=== PATIENT | female | born 1975 | race Caucasian/White ===

== ENCOUNTER 2016-09-10 21:14 | Emergency (ER) | payer SELFPAY ==
--- NOTE | 2016-09-10 22:49 | DIAGNOSTIC IMAGING REPORT ---
PROCEDURE: XR WRIST MIN 3 VIEWS - RIGHT INDICATION: TRAUMA/INJURY TECHNIQUE: Four views of the right wrist. COMPARISON: None. FINDINGS: Normal mineralization. Transverse, comminuted, impacted, slightly dorsally angulated fracture of the distal radius involving metaphysis. There is extension to the medial articular surface. Mildly displaced ulnar styloid fracture. Distal radial ulnar joint and radiocarpal alignment remain normal. Moderate soft tissue swelling. No radiodense foreign bodies. IMPRESSION: 1. Impacted, comminuted, partially intra-articular distal radius fracture. 2. Distal ulnar styloid fracture.
--- NOTE | 2016-09-10 23:29 | ED ORDER SUMMARY ---
..... Patient: MILADIS MARTIN OrderSheet [facility] VisitID: [id number] [place] [address] 41y, F Registration Date/Time: 09/10/2016 ORDER SHEET Weight: 70.3 kg (stated) Allergies: No Known Drug Allergy GENERAL ORDERS: Wrist 3 or 4V Right Urgent (21:45 09/10/2016 Chely Nascimento) (Ack 21:47 AMcQuoid ER Tech1) (22:25 Elena) Ice (21:55 09/10/2016 Chely Nascimento) (21:56 Matthias R.N.) Splint (UE) (Right) (Sugar Tong) (22:42 09/10/2016 Chely Nascimento) (23:35 HSoule) Sling - arm (22:43 09/10/2016 Chely Nascimento) (23:35 HSoule) MEDICATION ORDERS: IV FLUIDS: Morphine IV 4 mg (HIGH ALERT MEDICATION, NOW) (21:46 09/10/2016 Chely Nascimento) (21:56 Matthias R.N.) Zofran IV 4 mg (NOW) (21:58 09/10/2016 Chely Nascimento) (Ack 22:20 HSoule) (22:25 Merritt R.N.) Morphine IV 8 mg (HIGH ALERT MEDICATION, NOW) (22:41 09/10/2016 Chely Nascimento) (22:54 Matthias R.N.) Morphine IV 8 mg (HIGH ALERT MEDICATION, NOW) (23:46 09/10/2016 Chely Nascimento) (0:00 Merritt R.NTao) ORDER SHEET NOTES: [Electronically signed by Araceli Weiss R.N. (00:05 09/11/2016)] [Electronically signed by Raymond Weaver Dr. (06:58 09/11/2016)] [Electronically locked/signed by Araceli Weiss R.N. (00:05 09/11/2016)]
--- NOTE | 2016-09-10 23:29 | ED NURSING NOTES ---
Clinical Report - Nurses [facility] [place] [address] 09/10/2016 21:15 Patient: MILADIS MARTIN TRIAGE Triage time 21:37. Acuity: LEVEL 3. Chief Complaint: INJURY TO RIGHT HAND and RIGHT ELBOW and INJURY TO RIGHT SHOULDER. --21:37 Sheriff Wood R.N. 21:32 09/10/16. BP: 116/78. HR: 95. RR: 18. O2 saturation: 96%. Temp: 97.6 F. Pain level now: 11/21. --21:37 Sheriff Wood R.N. Weight: 70.3 kg stated. Height/Length: 65 inches Per Patient. BMI: 25.8. --21:36 Sheriff Wood R.N. Medications Hydrocodone-Acetaminophen Oral 5 mg, as needed. Wellbutrin Oral 300mg , daily. --21:34 Sheriff Wood R.N. Allergies No Known Drug Allergy. --21:34 Sheriff Wood R.N. History Arrived by private vehicle. Historian: patient. Accompanied by family. This occurred (1 hour ago). Occurred at an athletic field. ( Tried to stop a tackle while playing football, right arm twisted backward.). 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 PAST MEDICAL HX: Tetanus status: up-to-date. SURGERY HX: ( Right arm). SOCIAL HX: Never smoker. Alcohol use; consumes beer occasionally, liquor occasionally and wine occasionally. History of drug use: marijuana. FALL RISK ASSESSMENT: Fall risk assessment completed. No fall risk identified. NUTRITIONAL RISK ASSESSMENT: The nutritional risk assessment revealed no deficiencies. FUNCTIONAL ASSESSMENT: Functional assessment: no impairments noted. LEARNING NEEDS ASSESSMENT: The learning needs assessment revealed no barriers. SKIN INTEGRITY ASSESSMENT: Skin integrity risk assessment completed. No skin integrity risk identified. --21:37 Sheriff Wood R.N. PROBLEMS: Contusion. Jaw Pain. Depression. Back Pain. --21:34 Sambou, Pipe Line Inspector, R.N. Interventions ID band on patient. --21:37 Sheriff Wood R.N. PHYSICAL ASSESSMENT Ambulatory to room. GENERAL / NEURO / PSYCH: Oriented X 4. Appears in pain. EXTREMITIES: Capillary refill is less than 2 seconds in the extremities. Right shoulder: (pain). Right elbow: (pain). Right wrist: (pain). SKIN: Skin intact. Skin is warm and dry. --21:38 Sheriff Wood R.N. NURSING PROGRESS NOTES Two patient identifiers checked. Call light placed in reach. Side rails up x 2. Bed placed in lowest position. Brakes of bed on. --21:39 Sheriff Wood R.N. 21:45 09/10/2016 Site #1 started via IV in the right antecubital space with an 20g angiocath, with aseptic technique and good blood return; one attempt. Blood drawn: rainbow set. Labeled in the presence of the patient and sent to the lab. Saline lock flushed with 10 mL saline. --21:55 Sheriff Wood R.N. 21:56 09/10/2016 Morphine IVP 4 mg given over 1 minute(s) via site #1. Allergies verified, confirmed 5 rights and sedative warning given to the patient. IV patency established. IV site checked: no pain, redness, or swelling. IV flushed thoroughly pre- and post-medication administration. IVP given by RN. --21:56 Sheriff Wood R.N. 22:25 09/10/2016 Zofran (Ondansetron HCl) IVP 4 mg given over 2 minute(s) via site #1. Allergies verified and confirmed 5 rights. IV patency established. IV site checked: no pain, redness, or swelling. IV flushed thoroughly pre- and post-medication administration. IVP given by RN. --22:25 Araceli Weiss R.N. 22:54 09/10/2016 Morphine IVP 8 mg given over 2 minute(s) via site #1. Allergies verified, confirmed 5 rights and sedative warning given to the patient. IV patency established. IV site checked: no pain, redness, or swelling. IV flushed thoroughly pre- and post-medication administration. IVP given by RN. --22:54 Sheriff Wood R.N. Sugar tong fiberglass upper extremity splint applied to right wrist and hand by tech. Distal pulses intact, sensation intact and motor within normal limits. Sling applied to right arm by medtronics technician; distal pulses intact, sensation intact and motor function within normal limits. --23:50 Danielle Ibrahim 23:55 09/10/2016 Morphine IVP 8 mg given over 2 minute(s) via site #1. Allergies verified, confirmed 5 rights and sedative warning given to the patient and patient's family. IV patency established. IV site checked: no pain, redness, or swelling. IV flushed thoroughly pre- and post-medication administration. IVP given by RN. --00:01 Araceli Weiss R.N. <<STRICKEN ENTRY-- 23:55 09/11/2016 Morphine IVP 8 mg given over 2 minute(s) via site #1. Allergies verified, confirmed 5 rights and sedative warning given to the patient and patient's family. IV patency established. IV site checked: no pain, redness, or swelling. IV flushed thoroughly pre- and post-medication administration. IVP given by RN. --00:00 Araceli Weiss R.N. --END STRIKE>> Correction. --00:01 Araceli Weiss R.N. DISPOSITION / DISCHARGE 00:01 09/11/2016 Site #1 removed upon discharge. Catheter intact. Manual pressure and bandage applied. --00:03 Araceli Weiss R.N. Departure time: 1. Condition at departure: improved and stable. No learning barriers present. Discharge instructions provided and reviewed with the patient and family. Reviewed medication(s) side effects, precautions, dosing and course information. Prescription(s) given to the patient. Reviewed referral to an orthopedic surgeon for followup. Activity restrictions (minimal use of injured extremity) reviewed. Work note given. Patient verbalized understanding. Written instructions provided in Spanish. The patient was discharged home and accompanied by spouse and family. She left the Emergency Department ambulatory and via private vehicle. Spouse driving. --00:04 Araceli Weiss R.N. 00:01 09/11/16. BP: 120/63. HR: 68 (regular and normal rate). RR: 18 (regular and unlabored). O2 saturation: 100% on room air. Temp: deferred. Pain level now: 09/20. --00:04 Araceli Weiss R.N. Locked/Released at 09/11/2016 0:05 by Araceli Weiss R.N.
--- NOTE | 2016-09-10 23:29 | ED ORDER SUMMARY ---
..... Patient: MILADIS MARTIN OrderSheet [facility] VisitID: [id number] [place] [address] 41y, F Registration Date/Time: 09/10/2016 ORDER SHEET Weight: 70.3 kg (stated) Allergies: No Known Drug Allergy GENERAL ORDERS: Wrist 3 or 4V Right Urgent (21:45 09/10/2016 Chely Nascimento) (Ack 21:47 AMcQuoid ER Tech1) (22:25 Elena) Ice (21:55 09/10/2016 Chely Nascimento) (21:56 Matthias R.N.) Splint (UE) (Right) (Sugar Tong) (22:42 09/10/2016 Chely Nascimento) (23:35 HSoule) Sling - arm (22:43 09/10/2016 Chely Nascimento) (23:35 HSoule) MEDICATION ORDERS: IV FLUIDS: Morphine IV 4 mg (HIGH ALERT MEDICATION, NOW) (21:46 09/10/2016 Chely Nascimento) (21:56 Matthias R.N.) Zofran IV 4 mg (NOW) (21:58 09/10/2016 Chely Nascimento) (Ack 22:20 HSoule) (22:25 Merritt R.N.) Morphine IV 8 mg (HIGH ALERT MEDICATION, NOW) (22:41 09/10/2016 Chely Nascimento) (22:54 Matthias R.N.) Morphine IV 8 mg (HIGH ALERT MEDICATION, NOW) (23:46 09/10/2016 Chely Nascimento) (0:00 Merritt R.NTao) ORDER SHEET NOTES: [Electronically signed by Araceli Weiss R.N. (00:05 09/11/2016)] [Electronically signed by Raymond Weaver Dr. (06:58 09/11/2016)] [Electronically locked/signed by Araceli Weiss R.N. (00:05 09/11/2016)]
--- NOTE | 2016-09-10 23:29 | ED CLINICAL REPORT ---
Clinical Report - Physicians/Mid Levels [facility] [address] [place] [address] 09/10/2016 21:15 Patient: MILADIS MARTIN Time Seen: 21:26; initial patient contact, initial documentation, patient care assumed. Arrived- By private vehicle. Historian- patient. HISTORY OF PRESENT ILLNESS Chief Complaint: Injury to right wrist. The injury happened today. Occurred at an athletic field. The patient sustained a severe direct blow (from blocking [employer] football player). Patient is experiencing severe pain. Patient denies injury to the head or neck. No other injury. ( no numbness, weakness, or tingling). REVIEW OF SYSTEMS The patient has had swelling. No tingling, numbness, weakness, suspected foreign body or skin laceration. All systems otherwise negative, except as recorded above. PAST HISTORY See nurses notes. Tetanus immunization status is up-to-date. Medications: Hydrocodone-Acetaminophen Oral 5 mg, as needed. Wellbutrin Oral 300mg , daily. Allergies: No Known Drug Allergy. SOCIAL HISTORY Never smoker. Occasional alcohol use. History of drug use history of. no current.: marijuana. No recent travel. Is a local resident. ADDITIONAL NOTES The nursing notes have been reviewed. PHYSICAL EXAM Vital Signs: 09/10/2016 21:32 BP: 116/78. HR: 95. RR: 18. O2 saturation: 96%. Temp: 97.6 F. Pain level now: 9/10. Blood pressure normal. Oxygen saturation normal. Appearance: Alert. Oriented X3. No acute distress. Head: Head atraumatic. Eyes: Pupils equal, round and reactive to light. Eyes normal inspection. ENT: Ears normal. Nose normal. Pharynx normal. Neck: Normal inspection. Neck supple. C-spine non-tender. No vertebral tenderness. CVS: Normal heart rate and rhythm. Heart sounds normal. Pulses normal. Respiratory: No respiratory distress. Breath sounds normal. Chest nontender. No rales, rhonchi or wheezes. Abdomen: No visible injury. Soft and nontender. Bowel sounds normal. No mass. Back: Normal inspection. No tenderness. ROM normal. Skin: Skin intact. Skin warm and dry. Normal skin color. Normal skin turgor. Extremities: Extremities otherwise negative. Neuro, Vascular and Tendons: Vascular status intact. Sensation intact. Motor intact. Tendon function intact. Neuro: Oriented X 3. No motor deficit. No sensory deficit. LABS, X-RAYS, AND EKG Rt Wrist X-ray: (PROCEDURE: XR WRIST MIN 3 VIEWS - RIGHT INDICATION: TRAUMA/INJURY TECHNIQUE: Four views of the right wrist. COMPARISON: None. FINDINGS: Normal mineralization. Transverse, comminuted, impacted, slightly dorsally angulated fracture of the distal radius involving metaphysis. There is extension to the medial articular surface. Mildly displaced ulnar styloid fracture. Distal radial ulnar joint and radiocarpal alignment remain normal. Moderate soft tissue swelling. No radiodense foreign bodies. IMPRESSION: 1. Impacted, comminuted, partially intra-articular distal radius fracture. 2. Distal ulnar styloid fracture.). The X-rays were independently viewed by me and interpreted by the radiologist. The X-rays were discussed with the radiologist (via pacs). PROGRESS AND PROCEDURES Course of Care: the patient is a 41-year-old female with upper in the past medical history presenting for evaluation of pain to the right wrist. No snuffbox tenderness. No pain with axial loading of the thumb. Patient is neurovascularly intact. Capillary refill less than 3 seconds in all fingers. Radial pulses 2+ and symmetrical to the contralateral side. Differential diagnosis at this time includes fracture versus dislocation. Patient is agreeable to treatment plan. Because of the patient's amount of discomfort, concern for significant fracture dislocation. IV was placed for potential need for sedation and fracture reduction. Patient required a second dose of pain medication while here in the emergency department because of persistent pain. Patient is noted to have the findings on x-rays above. Because of the patient's fracture, patient will need a sugar tong splint. Had long discussion with the patient and patient's family regards to her workup here in emergency department including diagnosis, home care, follow-up, and return precautions. All questions have been answered. The patient expressed understanding of these instructions and was agreeable to them. Prior to patient's departure from the emergency department she was noted to be neurovascularly intact. No pressure points noted on patient's repeat examination. Patient did request a repeat dose of pain medication prior to the IV been removed. This was provided to the patient. Disposition: Discharged. Condition: good. CLINICAL IMPRESSION 09/10/2016 21:32 BP: 116/78. HR: 95. RR: 18. O2 saturation: 96%. Temp: 97.6 F. Pain level now: 9/10. Blood pressure normal. Oxygen saturation normal. Closed nondisplaced ulnar styloid fracture of the right distal radius (acute). INSTRUCTIONS Wear splint. Limit use of right hand and right arm until released. Off work today, tomorrow. Warnings: SEDATIVE MEDICATION: You were given sedative medication during your visit. Do not drive or operate dangerous machinery. CONTROLLED SUBSTANCE WARNINGS. GENERAL WARNINGS: Return or contact your physician immediately if your condition worsens or changes unexpectedly, if not improving as expected, or if other problems arise. Specifically return if pain, vomiting, bleeding, breathing difficulty or fever. Your Current Medications: CONTINUE TAKING THE FOLLOWING MEDICATIONS: Hydrocodone-Acetaminophen Oral : 5 mg, prn. Wellbutrin Oral : 300mg daily. Prescription Medications: Percocet 5 mg/325 mg: take 1-2 tablets orally every 6 hours as needed for pain. Dispense thirty (30). No refill. Substitution is permissible. Follow-up: Return to the emergency department as needed. Follow up with your doctor in three days. Reason for referral: recheck today's concerns. Summary of care provided to patient via paper. Screening today revealed the patient's blood pressure to be in the normal range. The patient should follow up with a primary care provider for blood pressure management. Understanding of the discharge instructions verbalized by patient. [facility] with: [facility], , [address], , [place], [id number] Follow up in one week. Reason for referral: contact this office as soon as possible to schedule an appointment. Summary of care provided to patient via paper. (Electronically signed by Raymond Weaver Dr. 09/11/2016 6:58)
--- NOTE | 2016-09-10 23:29 | ED CLINICAL REPORT ---
Clinical Report - Physicians/Mid Levels [facility] [address] [place] [address] 09/10/2016 21:15 Patient: MILADIS MARTIN Time Seen: 21:26; initial patient contact, initial documentation, patient care assumed. Arrived- By private vehicle. Historian- patient. HISTORY OF PRESENT ILLNESS Chief Complaint: Injury to right wrist. The injury happened today. Occurred at an athletic field. The patient sustained a severe direct blow (from blocking [employer] football player). Patient is experiencing severe pain. Patient denies injury to the head or neck. No other injury. ( no numbness, weakness, or tingling). REVIEW OF SYSTEMS The patient has had swelling. No tingling, numbness, weakness, suspected foreign body or skin laceration. All systems otherwise negative, except as recorded above. PAST HISTORY See nurses notes. Tetanus immunization status is up-to-date. Medications: Hydrocodone-Acetaminophen Oral 5 mg, as needed. Wellbutrin Oral 300mg , daily. Allergies: No Known Drug Allergy. SOCIAL HISTORY Never smoker. Occasional alcohol use. History of drug use history of. no current.: marijuana. No recent travel. Is a local resident. ADDITIONAL NOTES The nursing notes have been reviewed. PHYSICAL EXAM Vital Signs: 09/10/2016 21:32 BP: 116/78. HR: 95. RR: 18. O2 saturation: 96%. Temp: 97.6 F. Pain level now: 9/10. Blood pressure normal. Oxygen saturation normal. Appearance: Alert. Oriented X3. No acute distress. Head: Head atraumatic. Eyes: Pupils equal, round and reactive to light. Eyes normal inspection. ENT: Ears normal. Nose normal. Pharynx normal. Neck: Normal inspection. Neck supple. C-spine non-tender. No vertebral tenderness. CVS: Normal heart rate and rhythm. Heart sounds normal. Pulses normal. Respiratory: No respiratory distress. Breath sounds normal. Chest nontender. No rales, rhonchi or wheezes. Abdomen: No visible injury. Soft and nontender. Bowel sounds normal. No mass. Back: Normal inspection. No tenderness. ROM normal. Skin: Skin intact. Skin warm and dry. Normal skin color. Normal skin turgor. Extremities: Extremities otherwise negative. Neuro, Vascular and Tendons: Vascular status intact. Sensation intact. Motor intact. Tendon function intact. Neuro: Oriented X 3. No motor deficit. No sensory deficit. LABS, X-RAYS, AND EKG Rt Wrist X-ray: (PROCEDURE: XR WRIST MIN 3 VIEWS - RIGHT INDICATION: TRAUMA/INJURY TECHNIQUE: Four views of the right wrist. COMPARISON: None. FINDINGS: Normal mineralization. Transverse, comminuted, impacted, slightly dorsally angulated fracture of the distal radius involving metaphysis. There is extension to the medial articular surface. Mildly displaced ulnar styloid fracture. Distal radial ulnar joint and radiocarpal alignment remain normal. Moderate soft tissue swelling. No radiodense foreign bodies. IMPRESSION: 1. Impacted, comminuted, partially intra-articular distal radius fracture. 2. Distal ulnar styloid fracture.). The X-rays were independently viewed by me and interpreted by the radiologist. The X-rays were discussed with the radiologist (via pacs). PROGRESS AND PROCEDURES Course of Care: the patient is a 41-year-old female with upper in the past medical history presenting for evaluation of pain to the right wrist. No snuffbox tenderness. No pain with axial loading of the thumb. Patient is neurovascularly intact. Capillary refill less than 3 seconds in all fingers. Radial pulses 2+ and symmetrical to the contralateral side. Differential diagnosis at this time includes fracture versus dislocation. Patient is agreeable to treatment plan. Because of the patient's amount of discomfort, concern for significant fracture dislocation. IV was placed for potential need for sedation and fracture reduction. Patient required a second dose of pain medication while here in the emergency department because of persistent pain. Patient is noted to have the findings on x-rays above. Because of the patient's fracture, patient will need a sugar tong splint. Had long discussion with the patient and patient's family regards to her workup here in emergency department including diagnosis, home care, follow-up, and return precautions. All questions have been answered. The patient expressed understanding of these instructions and was agreeable to them. Prior to patient's departure from the emergency department she was noted to be neurovascularly intact. No pressure points noted on patient's repeat examination. Patient did request a repeat dose of pain medication prior to the IV been removed. This was provided to the patient. Disposition: Discharged. Condition: good. CLINICAL IMPRESSION 09/10/2016 21:32 BP: 116/78. HR: 95. RR: 18. O2 saturation: 96%. Temp: 97.6 F. Pain level now: 9/10. Blood pressure normal. Oxygen saturation normal. Closed nondisplaced ulnar styloid fracture of the right distal radius (acute). INSTRUCTIONS Wear splint. Limit use of right hand and right arm until released. Off work today, tomorrow. Warnings: SEDATIVE MEDICATION: You were given sedative medication during your visit. Do not drive or operate dangerous machinery. CONTROLLED SUBSTANCE WARNINGS. GENERAL WARNINGS: Return or contact your physician immediately if your condition worsens or changes unexpectedly, if not improving as expected, or if other problems arise. Specifically return if pain, vomiting, bleeding, breathing difficulty or fever. Your Current Medications: CONTINUE TAKING THE FOLLOWING MEDICATIONS: Hydrocodone-Acetaminophen Oral : 5 mg, prn. Wellbutrin Oral : 300mg daily. Prescription Medications: Percocet 5 mg/325 mg: take 1-2 tablets orally every 6 hours as needed for pain. Dispense thirty (30). No refill. Substitution is permissible. Follow-up: Return to the emergency department as needed. Follow up with your doctor in three days. Reason for referral: recheck today's concerns. Summary of care provided to patient via paper. Screening today revealed the patient's blood pressure to be in the normal range. The patient should follow up with a primary care provider for blood pressure management. Understanding of the discharge instructions verbalized by patient. [facility]-up with: [facility], , [address], , [place], [id number] Follow up in one week. Reason for referral: contact this office as soon as possible to schedule an appointment. Summary of care provided to patient via paper. (Electronically signed by Raymond Weaver Dr. 09/11/2016 6:58)
--- NOTE | 2016-09-10 23:29 | ED NURSING NOTES ---
Clinical Report - Nurses [facility] [place] [address] [place] [address] 09/10/2016 21:15 Patient: MILADIS MARTIN TRIAGE Triage time 21:37. Acuity: LEVEL 3. Chief Complaint: INJURY TO RIGHT HAND and RIGHT ELBOW and INJURY TO RIGHT SHOULDER. --21:37 Sheriff Wood R.N. 21:32 09/10/16. BP: 116/78. HR: 95. RR: 18. O2 saturation: 96%. Temp: 97.6 F. Pain level now: 11/21. --21:37 Sheriff Wood R.N. Weight: 70.3 kg stated. Height/Length: 65 inches Per Patient. BMI: 25.8. --21:36 Sheriff Wood R.N. Medications Hydrocodone-Acetaminophen Oral 5 mg, as needed. Wellbutrin Oral 300mg , daily. --21:34 Sheriff Wood R.N. Allergies No Known Drug Allergy. --21:34 Sheriff Wood R.N. History Arrived by private vehicle. Historian: patient. Accompanied by family. This occurred (1 hour ago). Occurred at an athletic field. ( Tried to stop a tackle while playing football, right arm twisted backward.). 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 PAST MEDICAL HX: Tetanus status: up-to-date. SURGERY HX: ( Right arm). SOCIAL HX: Never smoker. Alcohol use; consumes beer occasionally, liquor occasionally and wine occasionally. History of drug use: marijuana. FALL RISK ASSESSMENT: Fall risk assessment completed. No fall risk identified. NUTRITIONAL RISK ASSESSMENT: The nutritional risk assessment revealed no deficiencies. FUNCTIONAL ASSESSMENT: Functional assessment: no impairments noted. LEARNING NEEDS ASSESSMENT: The learning needs assessment revealed no barriers. SKIN INTEGRITY ASSESSMENT: Skin integrity risk assessment completed. No skin integrity risk identified. --21:37 Sheriff Wood R.N. PROBLEMS: Contusion. Jaw Pain. Depression. Back Pain. --21:34 Sambou, Dry Cleaner Helper, R.N. Interventions ID band on patient. --21:37 Sheriff Wood R.N. PHYSICAL ASSESSMENT Ambulatory to room. GENERAL / NEURO / PSYCH: Oriented X 4. Appears in pain. EXTREMITIES: Capillary refill is less than 2 seconds in the extremities. Right shoulder: (pain). Right elbow: (pain). Right wrist: (pain). SKIN: Skin intact. Skin is warm and dry. --21:38 Sheriff Wood R.N. NURSING PROGRESS NOTES Two patient identifiers checked. Call light placed in reach. Side rails up x 2. Bed placed in lowest position. Brakes of bed on. --21:39 Sheriff Wood R.N. 21:45 09/10/2016 Site #1 started via IV in the right antecubital space with an 20g angiocath, with aseptic technique and good blood return; one attempt. Blood drawn: rainbow set. Labeled in the presence of the patient and sent to the lab. Saline lock flushed with 10 mL saline. --21:55 Sheriff Wood R.N. 21:56 09/10/2016 Morphine IVP 4 mg given over 1 minute(s) via site #1. Allergies verified, confirmed 5 rights and sedative warning given to the patient. IV patency established. IV site checked: no pain, redness, or swelling. IV flushed thoroughly pre- and post-medication administration. IVP given by RN. --21:56 Sheriff Wood R.N. 22:25 09/10/2016 Zofran (Ondansetron HCl) IVP 4 mg given over 2 minute(s) via site #1. Allergies verified and confirmed 5 rights. IV patency established. IV site checked: no pain, redness, or swelling. IV flushed thoroughly pre- and post-medication administration. IVP given by RN. --22:25 Araceli Weiss R.N. 22:54 09/10/2016 Morphine IVP 8 mg given over 2 minute(s) via site #1. Allergies verified, confirmed 5 rights and sedative warning given to the patient. IV patency established. IV site checked: no pain, redness, or swelling. IV flushed thoroughly pre- and post-medication administration. IVP given by RN. --22:54 Sheriff Wood R.N. Sugar tong fiberglass upper extremity splint applied to right wrist and hand by tech. Distal pulses intact, sensation intact and motor within normal limits. Sling applied to right arm by irrigation technician; distal pulses intact, sensation intact and motor function within normal limits. --23:50 Danielle Ibrahim 23:55 09/10/2016 Morphine IVP 8 mg given over 2 minute(s) via site #1. Allergies verified, confirmed 5 rights and sedative warning given to the patient and patient's family. IV patency established. IV site checked: no pain, redness, or swelling. IV flushed thoroughly pre- and post-medication administration. IVP given by RN. --00:01 Araceli Weiss R.N. <<STRICKEN ENTRY-- 23:55 09/11/2016 Morphine IVP 8 mg given over 2 minute(s) via site #1. Allergies verified, confirmed 5 rights and sedative warning given to the patient and patient's family. IV patency established. IV site checked: no pain, redness, or swelling. IV flushed thoroughly pre- and post-medication administration. IVP given by RN. --00:00 Araceli Weiss R.N. --END STRIKE>> Correction. --00:01 Araceli Weiss R.N. DISPOSITION / DISCHARGE 00:01 09/11/2016 Site #1 removed upon discharge. Catheter intact. Manual pressure and bandage applied. --00:03 Araceli Weiss R.N. Departure time: 1. Condition at departure: improved and stable. No learning barriers present. Discharge instructions provided and reviewed with the patient and family. Reviewed medication(s) side effects, precautions, dosing and course information. Prescription(s) given to the patient. Reviewed referral to an orthopedic surgeon for followup. Activity restrictions (minimal use of injured extremity) reviewed. Work note given. Patient verbalized understanding. Written instructions provided in Slovak. The patient was discharged home and accompanied by spouse and family. She left the Emergency Department ambulatory and via private vehicle. Spouse driving. --00:04 Araceli Weiss R.N. 00:01 09/11/16. BP: 120/63. HR: 68 (regular and normal rate). RR: 18 (regular and unlabored). O2 saturation: 100% on room air. Temp: deferred. Pain level now: 09/20. --00:04 Araceli Weiss R.N. Locked/Released at 09/11/2016 0:05 by Araceli Weiss R.N.
--- NOTE | 2016-09-11 06:58 | ED MAR SUMMARY ---
..... Medication Administration Record [facility] [address] [place] [address] Patient: MILADIS MARTIN Visit ID: [id number] 41y, F Weight: 70.3 kg Height/Length: 65 in BMI: 25.8 ALLERGIES: No Known Drug Allergy Given 21:56 09/10/2016 Sheriff Wood R.N. Medication Administered: MORPHINE [IVP], Dose: 4 mg IVP over 1 minute(s), Site: #1 right AC. Medication Ordered: Morphine IV 4 mg (HIGH ALERT MEDICATION, NOW). Given 22:25 09/10/2016 Araceli Weiss R.N. Medication Administered: ZOFRAN [IVP] (ONDANSETRON HCL), Dose: 4 mg IVP over 2 minute(s), Site: #1 right AC. Medication Ordered: Zofran IV 4 mg (NOW). Given 22:54 09/10/2016 Sheriff Wood R.N. Medication Administered: MORPHINE [IVP], Dose: 8 mg IVP over 2 minute(s), Site: #1 right AC. Medication Ordered: Morphine IV 8 mg (HIGH ALERT MEDICATION, NOW). Given 23:55 09/10/2016 Araceli Weiss R.N. Medication Administered: MORPHINE [IVP], Dose: 8 mg IVP over 2 minute(s), Site: #1 right AC. Medication Ordered: Morphine IV 8 mg (HIGH ALERT MEDICATION, NOW).
--- NOTE | 2016-09-11 06:58 | ED MAR SUMMARY ---
..... Medication Administration Record [facility] [address] [place] [place] [address] Patient: MILADIS MARTIN Visit ID: [id number] 41y, F Weight: 70.3 kg Height/Length: 65 in BMI: 25.8 ALLERGIES: No Known Drug Allergy Given 21:56 09/10/2016 Sheriff Wood R.N. Medication Administered: MORPHINE [IVP], Dose: 4 mg IVP over 1 minute(s), Site: #1 right AC. Medication Ordered: Morphine IV 4 mg (HIGH ALERT MEDICATION, NOW). Given 22:25 09/10/2016 Araceli Weiss R.N. Medication Administered: ZOFRAN [IVP] (ONDANSETRON HCL), Dose: 4 mg IVP over 2 minute(s), Site: #1 right AC. Medication Ordered: Zofran IV 4 mg (NOW). Given 22:54 09/10/2016 Sheriff Wood R.N. Medication Administered: MORPHINE [IVP], Dose: 8 mg IVP over 2 minute(s), Site: #1 right AC. Medication Ordered: Morphine IV 8 mg (HIGH ALERT MEDICATION, NOW). Given 23:55 09/10/2016 Araceli Weiss R.N. Medication Administered: MORPHINE [IVP], Dose: 8 mg IVP over 2 minute(s), Site: #1 right AC. Medication Ordered: Morphine IV 8 mg (HIGH ALERT MEDICATION, NOW).
--- NOTE | 2016-09-11 06:58 | ED MED RECONCILIATION SUMMARY ---
Patient: MILADIS MARTIN Medication Reconciliation Report [facility] VisitID: [id number] [address] [place] [address] 41y, F Registration Date/Time: 09/10/2016 Weight: 70.3 kg Height/Length: 65 in. BMI: 25.8 ALLERGIES: No Known Drug Allergy The patient's Home Medications are listed below: CONTINUE TAKING THE FOLLOWING MEDICATIONS: Hydrocodone-Acetaminophen Oral 5 mg Wellbutrin Oral 300mg , daily The source(s) of the original Home Medication information: Not obtained. The following Medications were given to the patient in the Emergency Department: Morphine [IVP] IVP 4 mg, administered: 09/10/2016 9:56:00 PM Zofran [IVP] IVP 4 mg, administered: 09/10/2016 10:25:00 PM Morphine [IVP] IVP 8 mg, administered: 09/10/2016 10:54:00 PM Morphine [IVP] IVP 8 mg, administered: 09/10/2016 11:55:00 PM The following Medications were prescribed to the patient: Percocet 5 mg/325 mg: take 1-2 tablets orally every 6 hours as needed for pain. Dispense thirty (30). No refill. Substitution is permissible. -- Raymond Weaver Dr.
--- NOTE | 2016-09-11 06:58 | ED DISCHARGE INSTRUCTIONS ---
Patient: MILADIS MARTIN General Instructions [facility] VisitID: [id number] [address] [place] [address] 41y, F Registration Date/Time: 09/10/2016 09/10/2016 21:32 BP: 116/78. HR: 95. RR: 18. O2 saturation: 96%. Temp: 97.6 F. Pain level now: 9/10. Blood pressure normal. Oxygen saturation normal. Closed nondisplaced ulnar styloid fracture of the right distal radius (acute). INSTRUCTIONS Wear splint. Limit use of right hand and right arm until released. Off work today, tomorrow. Warnings: SEDATIVE MEDICATION: You were given sedative medication during your visit. Do not drive or operate dangerous machinery. CONTROLLED SUBSTANCE WARNINGS. GENERAL WARNINGS: Return or contact your physician immediately if your condition worsens or changes unexpectedly, if not improving as expected, or if other problems arise. Specifically return if pain, vomiting, bleeding, breathing difficulty or fever. Your Current Medications: CONTINUE TAKING THE FOLLOWING MEDICATIONS: Hydrocodone-Acetaminophen Oral : 5 mg, prn. Wellbutrin Oral : 300mg daily. Prescription Medications: Percocet 5 mg/325 mg: take 1-2 tablets orally every 6 hours as needed for pain. Dispense thirty (30). No refill. Substitution is permissible. Follow-up: Return to the emergency department as needed. Follow up with your doctor in three days. Reason for referral: recheck today's concerns. Summary of care provided to patient via paper. Screening today revealed the patient's blood pressure to be in the normal range. The patient should follow up with a primary care provider for blood pressure management. Understanding of the discharge instructions verbalized by patient. Follow-up with: [facility], , [address], [place], [address] Follow up in one week. Reason for referral: contact this office as soon as possible to schedule an appointment. Summary of care provided to patient via paper. ADDITIONAL INFORMATION Fracture: Wrist (General) You have a fracture (break) of a bone in your wrist. This may be a small crack or chip in the bone; or a major break with the broken parts pushed out of position. Wrist fractures are treated with a splint or cast. They take about 4-6 weeks to heal. Severe injuries may require surgery. Home Care: Keep your arm elevated to reduce pain and swelling. When sitting or lying down elevate your arm above the level of your heart. You can do this by placing your arm on a pillow that rests on your chest or on a pillow at your side. This is most important during the first 48 hours after injury. Apply an ice pack (ice cubes in a plastic bag, wrapped in a towel) over the injured area for 20 minutes every 1-2 hours the first day. You can place the ice pack inside the sling and directly over the splint/cast. Continue with ice packs 3-4 times a day for the next two days, then as needed for the relief of pain and swelling. Keep the cast/splint completely dry at all times. Bathe with your cast/splint out of the water, protected with a large plastic bag, rubber-banded at the top end. If a fiberglass splint/cast gets wet, you can dry it with a hair-dryer. You may use acetaminophen (Tylenol) or ibuprofen (Motrin, Advil) to control pain, unless another pain medicine was prescribed. [NOTE: If you have chronic liver or kidney disease or ever had a stomach ulcer or GI bleeding, talk with your doctor before using these medicines.] Follow Up with your doctor in one week, or as advised by our staff, to be sure the bone is healing properly. If a splint was applied, it will be changed to a cast during your follow-up visit. [NOTE: Any X-rays taken will be reviewed by a radiologist. You will be notified if there are any new findings that may affect your care.] Get Prompt Medical Attention if any of the following occur: The plaster cast or splint becomes wet or soft The fiberglass cast or splint remains wet for more than 24 hours Increased tightness or pain under the cast or splint Fingers become swollen, cold, blue, numb or tingly Oxycodone Hydrochloride, Acetaminophen Oral tablet What is this medicine? ACETAMINOPHEN; OXYCODONE (a set a ARI luda fen; ox i KOE done) is a pain reliever. It is used to treat mild to moderate pain. How should I use this medicine? Take this medicine by mouth with a full glass of water. Follow the directions on the prescription label. Take your medicine at regular intervals. Do not take your medicine more often than directed. Talk to your home office claims examiner regarding the use of this medicine in children. Special care may be needed. Patients over 65 years old may have a stronger reaction and need a smaller dose. What side effects may I notice from receiving this medicine? Side effects that you should report to your doctor or health career guidance counselor as soon as possible: allergic reactions like skin rash, itching or hives, swelling of the face, lips, or tongue breathing difficulties, wheezing confusion light headedness or fainting spells severe stomach pain yellowing of the skin or the whites of the eyes Side effects that usually do not require medical attention (report to your doctor or health career guidance counselor if they continue or are bothersome): dizziness drowsiness nausea vomiting What may interact with this medicine? alcohol antihistamines barbiturates like amobarbital, butalbital, butabarbital, methohexital, pentobarbital, phenobarbital, thiopental, and secobarbital benztropine drugs for bladder problems like solifenacin, trospium, oxybutynin, tolterodine, hyoscyamine, and methscopolamine drugs for breathing problems like ipratropium and tiotropium drugs for certain stomach or intestine problems like propantheline, homatropine methylbromide, glycopyrrolate, atropine, belladonna, and dicyclomine general anesthetics like etomidate, ketamine, nitrous oxide, propofol, desflurane, enflurane, halothane, isoflurane, and sevoflurane medicines for depression, anxiety, or psychotic disturbances medicines for sleep muscle relaxants naltrexone narcotic medicines (opiates) for pain phenothiazines like perphenazine, thioridazine, chlorpromazine, mesoridazine, fluphenazine, prochlorperazine, promazine, and trifluoperazine scopolamine tramadol trihexyphenidyl What if I miss a dose? If you miss a dose, take it as soon as you can. If it is almost time for your next dose, take only that dose. Do not take double or extra doses. Where should I keep my medicine? Keep out of the reach of children. This medicine can be abused. Keep your medicine in a safe place to protect it from theft. Do not share this medicine with anyone. Selling or giving away this medicine is dangerous and against the law. Store at room temperature between 20 and 25 degrees C (68 and 77 degrees F). Keep container tightly closed. Protect from light. This medicine may cause accidental overdose and if it is taken by other adults, children, or pets. Flush any unused medicine down the toilet to reduce the chance of harm. Do not use the medicine after the expiration date. What should I tell my health care provider before I take this medicine? They need to know if you have any of these conditions: brain tumor Crohn's disease, inflammatory bowel disease, or ulcerative colitis drink more than 3 alcohol containing drinks per day drug abuse or addiction head injury heart or circulation problems kidney disease or problems going to the bathroom liver disease lung disease, asthma, or breathing problems an unusual or allergic reaction to acetaminophen, oxycodone, other opioid analgesics, other medicines, foods, dyes, or preservatives or trying to get breast-feeding What should I watch for while using this medicine? Tell your doctor or health career guidance counselor if your pain does not go away, if it gets worse, or if you have new or a different type of pain. You may develop tolerance to the medicine. Tolerance means that you will need a higher dose of the medication for pain relief. Tolerance is normal and is expected if you take this medicine for a long time. Do not suddenly stop taking your medicine because you may develop a severe reaction. Your body becomes used to the medicine. This does NOT mean you are addicted. Addiction is a behavior related to getting and using a drug for a non-medical reason. If you have pain, you have a medical reason to take pain medicine. Your doctor will tell you how much medicine to take. If your doctor wants you to stop the medicine, the dose will be slowly lowered over time to avoid any side effects. You may get drowsy or dizzy. Do not drive, use machinery, or do anything that needs mental alertness until you know how this medicine affects you. Do not stand or sit up quickly, especially if you are an older patient. This reduces the risk of dizzy or fainting spells. Alcohol may interfere with the effect of this medicine. Avoid alcoholic drinks. There are different types of narcotic medicines (opiates) for pain. If you take more than one type at the same time, you may have more side effects. Give your health care provider a list of all medicines you use. Your doctor will tell you how much medicine to take. Do not take more medicine than directed. Call emergency for help if you have problems breathing. The medicine will cause constipation. Try to have a bowel movement at least every 2 to 3 days. If you do not have a bowel movement for 3 days, call your doctor or health career guidance counselor. Do not take Tylenol (acetaminophen) or medicines that have acetaminophen with this medicine. Too much acetaminophen can be very dangerous. Many nonprescription medicines contain acetaminophen. Always read the labels carefully to avoid taking more acetaminophen. You have been given the following additional information: Fracture, Wrist [General] Oxycodone Hydrochloride, Acetaminophen Oral tablet Limit use of right hand and right arm until released. Off work today, tomorrow. (Electronically signed by Raymond Weaver Dr. 09/11/2016 6:58)
--- NOTE | 2016-09-11 06:58 | ED DISCHARGE INSTRUCTIONS ---
Patient: MILADIS MARTIN General Instructions [facility] VisitID: [id number] [address] [place] [address] 41y, F Registration Date/Time: 09/10/2016 09/10/2016 21:32 BP: 116/78. HR: 95. RR: 18. O2 saturation: 96%. Temp: 97.6 F. Pain level now: 9/10. Blood pressure normal. Oxygen saturation normal. Closed nondisplaced ulnar styloid fracture of the right distal radius (acute). INSTRUCTIONS Wear splint. Limit use of right hand and right arm until released. Off work today, tomorrow. Warnings: SEDATIVE MEDICATION: You were given sedative medication during your visit. Do not drive or operate dangerous machinery. CONTROLLED SUBSTANCE WARNINGS. GENERAL WARNINGS: Return or contact your physician immediately if your condition worsens or changes unexpectedly, if not improving as expected, or if other problems arise. Specifically return if pain, vomiting, bleeding, breathing difficulty or fever. Your Current Medications: CONTINUE TAKING THE FOLLOWING MEDICATIONS: Hydrocodone-Acetaminophen Oral : 5 mg, prn. Wellbutrin Oral : 300mg daily. Prescription Medications: Percocet 5 mg/325 mg: take 1-2 tablets orally every 6 hours as needed for pain. Dispense thirty (30). No refill. Substitution is permissible. Follow-up: Return to the emergency department as needed. Follow up with your doctor in three days. Reason for referral: recheck today's concerns. Summary of care provided to patient via paper. Screening today revealed the patient's blood pressure to be in the normal range. The patient should follow up with a primary care provider for blood pressure management. Understanding of the discharge instructions verbalized by patient. Follow-up with: [facility], , [address], [place], [address] Follow up in one week. Reason for referral: contact this office as soon as possible to schedule an appointment. Summary of care provided to patient via paper. ADDITIONAL INFORMATION Fracture: Wrist (General) You have a fracture (break) of a bone in your wrist. This may be a small crack or chip in the bone; or a major break with the broken parts pushed out of position. Wrist fractures are treated with a splint or cast. They take about 4-6 weeks to heal. Severe injuries may require surgery. Home Care: Keep your arm elevated to reduce pain and swelling. When sitting or lying down elevate your arm above the level of your heart. You can do this by placing your arm on a pillow that rests on your chest or on a pillow at your side. This is most important during the first 48 hours after injury. Apply an ice pack (ice cubes in a plastic bag, wrapped in a towel) over the injured area for 20 minutes every 1-2 hours the first day. You can place the ice pack inside the sling and directly over the splint/cast. Continue with ice packs 3-4 times a day for the next two days, then as needed for the relief of pain and swelling. Keep the cast/splint completely dry at all times. Bathe with your cast/splint out of the water, protected with a large plastic bag, rubber-banded at the top end. If a fiberglass splint/cast gets wet, you can dry it with a hair-dryer. You may use acetaminophen (Tylenol) or ibuprofen (Motrin, Advil) to control pain, unless another pain medicine was prescribed. [NOTE: If you have chronic liver or kidney disease or ever had a stomach ulcer or GI bleeding, talk with your doctor before using these medicines.] Follow Up with your doctor in one week, or as advised by our staff, to be sure the bone is healing properly. If a splint was applied, it will be changed to a cast during your follow-up visit. [NOTE: Any X-rays taken will be reviewed by a radiologist. You will be notified if there are any new findings that may affect your care.] Get Prompt Medical Attention if any of the following occur: The plaster cast or splint becomes wet or soft The fiberglass cast or splint remains wet for more than 24 hours Increased tightness or pain under the cast or splint Fingers become swollen, cold, blue, numb or tingly Oxycodone Hydrochloride, Acetaminophen Oral tablet What is this medicine? ACETAMINOPHEN; OXYCODONE (a set a ARI luda fen; ox i KOE done) is a pain reliever. It is used to treat mild to moderate pain. How should I use this medicine? Take this medicine by mouth with a full glass of water. Follow the directions on the prescription label. Take your medicine at regular intervals. Do not take your medicine more often than directed. Talk to your web content specialist regarding the use of this medicine in children. Special care may be needed. Patients over 65 years old may have a stronger reaction and need a smaller dose. What side effects may I notice from receiving this medicine? Side effects that you should report to your doctor or health human services care specialist as soon as possible: allergic reactions like skin rash, itching or hives, swelling of the face, lips, or tongue breathing difficulties, wheezing confusion light headedness or fainting spells severe stomach pain yellowing of the skin or the whites of the eyes Side effects that usually do not require medical attention (report to your doctor or health human services care specialist if they continue or are bothersome): dizziness drowsiness nausea vomiting What may interact with this medicine? alcohol antihistamines barbiturates like amobarbital, butalbital, butabarbital, methohexital, pentobarbital, phenobarbital, thiopental, and secobarbital benztropine drugs for bladder problems like solifenacin, trospium, oxybutynin, tolterodine, hyoscyamine, and methscopolamine drugs for breathing problems like ipratropium and tiotropium drugs for certain stomach or intestine problems like propantheline, homatropine methylbromide, glycopyrrolate, atropine, belladonna, and dicyclomine general anesthetics like etomidate, ketamine, nitrous oxide, propofol, desflurane, enflurane, halothane, isoflurane, and sevoflurane medicines for depression, anxiety, or psychotic disturbances medicines for sleep muscle relaxants naltrexone narcotic medicines (opiates) for pain phenothiazines like perphenazine, thioridazine, chlorpromazine, mesoridazine, fluphenazine, prochlorperazine, promazine, and trifluoperazine scopolamine tramadol trihexyphenidyl What if I miss a dose? If you miss a dose, take it as soon as you can. If it is almost time for your next dose, take only that dose. Do not take double or extra doses. Where should I keep my medicine? Keep out of the reach of children. This medicine can be abused. Keep your medicine in a safe place to protect it from theft. Do not share this medicine with anyone. Selling or giving away this medicine is dangerous and against the law. Store at room temperature between 20 and 25 degrees C (68 and 77 degrees F). Keep container tightly closed. Protect from light. This medicine may cause accidental overdose and if it is taken by other adults, children, or pets. Flush any unused medicine down the toilet to reduce the chance of harm. Do not use the medicine after the expiration date. What should I tell my health care provider before I take this medicine? They need to know if you have any of these conditions: brain tumor Crohn's disease, inflammatory bowel disease, or ulcerative colitis drink more than 3 alcohol containing drinks per day drug abuse or addiction head injury heart or circulation problems kidney disease or problems going to the bathroom liver disease lung disease, asthma, or breathing problems an unusual or allergic reaction to acetaminophen, oxycodone, other opioid analgesics, other medicines, foods, dyes, or preservatives or trying to get breast-feeding What should I watch for while using this medicine? Tell your doctor or health human services care specialist if your pain does not go away, if it gets worse, or if you have new or a different type of pain. You may develop tolerance to the medicine. Tolerance means that you will need a higher dose of the medication for pain relief. Tolerance is normal and is expected if you take this medicine for a long time. Do not suddenly stop taking your medicine because you may develop a severe reaction. Your body becomes used to the medicine. This does NOT mean you are addicted. Addiction is a behavior related to getting and using a drug for a non-medical reason. If you have pain, you have a medical reason to take pain medicine. Your doctor will tell you how much medicine to take. If your doctor wants you to stop the medicine, the dose will be slowly lowered over time to avoid any side effects. You may get drowsy or dizzy. Do not drive, use machinery, or do anything that needs mental alertness until you know how this medicine affects you. Do not stand or sit up quickly, especially if you are an older patient. This reduces the risk of dizzy or fainting spells. Alcohol may interfere with the effect of this medicine. Avoid alcoholic drinks. There are different types of narcotic medicines (opiates) for pain. If you take more than one type at the same time, you may have more side effects. Give your health care provider a list of all medicines you use. Your doctor will tell you how much medicine to take. Do not take more medicine than directed. Call emergency for help if you have problems breathing. The medicine will cause constipation. Try to have a bowel movement at least every 2 to 3 days. If you do not have a bowel movement for 3 days, call your doctor or health human services care specialist. Do not take Tylenol (acetaminophen) or medicines that have acetaminophen with this medicine. Too much acetaminophen can be very dangerous. Many nonprescription medicines contain acetaminophen. Always read the labels carefully to avoid taking more acetaminophen. You have been given the following additional information: Fracture, Wrist [General] Oxycodone Hydrochloride, Acetaminophen Oral tablet Limit use of right hand and right arm until released. Off work today, tomorrow. (Electronically signed by Raymond Weaver Dr. 09/11/2016 6:58)
--- NOTE | 2016-09-11 06:58 | ED MED RECONCILIATION SUMMARY ---
Patient: MILADIS MARTIN Medication Reconciliation Report [facility] VisitID: [id number] [address] [place] [address] 41y, F Registration Date/Time: 09/10/2016 Weight: 70.3 kg Height/Length: 65 in. BMI: 25.8 ALLERGIES: No Known Drug Allergy The patient's Home Medications are listed below: CONTINUE TAKING THE FOLLOWING MEDICATIONS: Hydrocodone-Acetaminophen Oral 5 mg Wellbutrin Oral 300mg , daily The source(s) of the original Home Medication information: Not obtained. The following Medications were given to the patient in the Emergency Department: Morphine [IVP] IVP 4 mg, administered: 09/10/2016 9:56:00 PM Zofran [IVP] IVP 4 mg, administered: 09/10/2016 10:25:00 PM Morphine [IVP] IVP 8 mg, administered: 09/10/2016 10:54:00 PM Morphine [IVP] IVP 8 mg, administered: 09/10/2016 11:55:00 PM The following Medications were prescribed to the patient: Percocet 5 mg/325 mg: take 1-2 tablets orally every 6 hours as needed for pain. Dispense thirty (30). No refill. Substitution is permissible. -- Raymond Weaver Dr.
== END 2016-09-11 00:02 | disposition home or self-care (01) ==
LOC: ED SRH 21:14
DX: S52.514A Nondisplaced fracture of right radial styloid process, initial encounter for closed fracture (principal); W50.0XXA Accidental hit or strike by another person, initial encounter; Y93.61 Activity, american tackle football; Y99.8 Other external cause status; Y92.321 Football field as the place of occurrence of the external cause; Z79.899 Other long term (current) drug therapy